=== PATIENT | male | born 1970 | race Caucasian/White ===

== ENCOUNTER 2018-02-20 10:01 | Day surgery (SDC) | payer BC ==
[~2018-02-20] VITALS: Ht 182.9 cm; Wt 138.6 kg
[2018-02-20] MEDS ORDERED: LACTATED RINGERS 1,000 ML IV SCH (10:22)
[2018-02-20] MEDS ORDERED: GABAPENTIN 300 MG CAPSULE PO ONE (10:30)
[2018-02-20] MEDS ORDERED: ONDANSETRON ODT 8 MG PO ONE (10:30)
[2018-02-20] MEDS ORDERED: ACETAMINOPHEN 500 MG TABLET PO ONE (10:30)
[2018-02-20] MEDS ORDERED: NONE PER PT (10:43)
[2018-02-20 10:44] VITALS: BP 139/99
[2018-02-20] MEDS ORDERED: ROPivacaine/PF 0.2%, 10 ML ONE (10:44)
[2018-02-20] MEDS ORDERED: ROPIvacaine/PF 0.2%, 20 ML ONE (10:44)
[2018-02-20] MEDS ORDERED: methylPREDNISolone*ACETATE* 80 MG/ML ONE (10:49)
[2018-02-20] MEDS ORDERED: FENTANYL PF 100 MCG/2ML ONE (10:51)
[2018-02-20] MEDS ORDERED: MIDAZOLAM 1 MG/ML, 2ML ONE (10:51)
[2018-02-20] MEDS ORDERED: PROPOFOL 10 MG/ML, 20ML ONE (11:25)
[2018-02-20] MEDS ORDERED: DEXAMETHASONE 4 MG/ML, 1ML ONE (11:25)
[2018-02-20] MEDS ORDERED: CEFAZOLIN 1,000 MG ONE ×2 (11:25)
[2018-02-20] MEDS ORDERED: ALBUTEROL/IPRATROPIUM 2.5MG/0.5MG, 3 ML NPPB PRN (11:30)
[2018-02-20] MEDS ORDERED: PROMETHAZINE 25 MG SUPP PR PRN (11:30)
[2018-02-20] MEDS ORDERED: ONDANSETRON 2MG/ML, 2ML IV PRN (11:30)
[2018-02-20] MEDS ORDERED: FENTANYL PF 100 MCG/2ML IV PRN (11:30)
[2018-02-20] MEDS ORDERED: MEPERIDINE/PF 25MG/0.5ML IVPush PRN (11:30)
[2018-02-20] MEDS ORDERED: HYDROmorphone 1 MG/ML, 1ML IV PRN (11:30)
[2018-02-20] MEDS ORDERED: MIDAZOLAM 1 MG/ML, 2ML IV PRN (11:30)
[2018-02-20] MEDS ORDERED: SCOPOLAMINE PATCH, 1.5MG PATCH.TD72 TD PRN (11:30)
[2018-02-20] MEDS: OXYcodone 5 MG/5 ML ORAL.SOL UDC PO PRN ×2 (12:11→14:59)
[2018-02-20] MEDS ORDERED: OXYcodone 5 MG/5 ML ORAL.SOL UDC ONE (12:11)
== END 2018-02-20 16:00 | disposition home or self-care (01) ==
LOC: OUT 10:01
PROVIDERS: ATTEND Orthopaedic Surgery
DX: S83.241A Other tear of medial meniscus, current injury, right knee, initial encounter (principal); K21.9 Gastro-esophageal reflux disease without esophagitis; I10 Essential (primary) hypertension; J44.9 Chronic obstructive pulmonary disease, unspecified; X58.XXXA Exposure to other specified factors, initial encounter; Y93.89 Activity, other specified; Y92.89 Other specified places as the place of occurrence of the external cause; Y99.8 Other external cause status; Z87.39 Personal history of other diseases of the musculoskeletal system and connective tissue; Z88.0 Allergy status to penicillin
CPT/HCPCS: 29881; J0690; J1040; J1100; J2250; J2704; J2795; J3010; J7120; Q0162